=== PATIENT | female | born 1975 ===

== ENCOUNTER 2023-04-11 01:49 | Emergency (ER) | payer OTHER ==
[2023-04-11 02:34] VITALS: BP 164/95; PULSE 96
[2023-04-11] MEDS ORDERED: Tetracaine HCl/PF 0.5% 4 ML Bottle EYERT ONE (03:16)
[2023-04-11] MEDS ORDERED: Fluorescein 1 MG Ophth Strip EYERT ONE (03:19)
[2023-04-11] MEDS ORDERED: Tobramycin 0.3% Ophth Drops 5 ML Bottle EYERT ONE (03:29)
== END 2023-04-11 03:58 | disposition home or self-care (01) ==
LOC: DL.ED 01:49
DX: H10.31 Unspecified acute conjunctivitis, right eye (principal); Z88.0 Allergy status to penicillin
CPT/HCPCS: 99282; 99283; A9270; J3490